=== PATIENT | male | born 1950 | race Caucasian/White ===

== ENCOUNTER 2022-10-31 13:59 | Outpatient (CLI) | payer MEDICARE, OTHER, SELFPAY ==
[2022-10-31 14:31] LABS: Anion Gap 5 mmol/L (8-16); Blood Urea Nitrogen 11 mg/dL (9-20); Calcium 9.1 mg/dL (8.4-10.2); Carbon Dioxide 32 mmol/L (22-30); Chloride 104 mmol/L (98-107); Estimated Glomerular Filt Rate > 60; Glucose 98 mg/dL (65-110); Potassium 4.3 mmol/L (3.4-5.0); Sodium 141 mmol/L (137-145)
== END 2022-10-31 14:00 | disposition home or self-care (01) ==
LOC: ANHSURGERY 14:07
PROVIDERS: Anesthesiology; PCP Family Medicine; Visit Provider Neurological Surgery
DX: M47.812 Spondylosis without myelopathy or radiculopathy, cervical region (principal); Z79.899 Other long term (current) drug therapy; Z01.818 Encounter for other preprocedural examination
CPT/HCPCS: 36415; 80048; 86850; 86900; 86901

== ENCOUNTER 2022-11-06 00:36 | Day surgery (SDC) | payer MEDICARE, OTHER, SELFPAY ==
[2022-10-31 09:09] VITALS: BMI 34.3
--- NOTE | 2022-10-31 09:33 | PC.NURSE ---
PRE-OP INSTRUCTIONS, PLEASE READ CAREFULLY Report to the Outpatient Waiting Room, entrance under the green pavilion located off [facility], at time _0600_ on date _11/06/22_. Planned Procedure Time: _0730_. PACK A SMALL OVERNIGHT BAG AND LEAVE IN THE CAR Time changes happen often and if your time is changed the preop area will call you the afternoon before. - You and your visitor will be asked to self-screen and do not enter if you have any COVID symptoms. - Only one visitor is requested with a max of two and NO children visitors are allowed at this time. - The patient visitor may be requested to leave or wait in car when not with patient due to distancing restrictions. - A mask is optional within the hospital at this time. Patients may have clear liquids (water, carbonated beverages, clear teas, apple juice) until 3 hours prior to surgery (0430 AM) with a maximum of 20 ounces. - No food from midnight until time of surgery Take the following medications with a SIP of water the morning of surgery: _HYDROCODONE, GABAPENTIN IF NEEDED__ DO NOT STOP ANY OF YOUR OTHER PRESCRIPTION MEDICATIONS PRIOR TO SURGERY ?EXCEPT THE FOLLOWING Medications to discontinue _CALQUENCE, MELOXICAM - PT STATES STOPPING 09/29/[address] CLARK INSTRUCTIONS_ Date to take last dose Please no make-up, nail beninese, hairspray, perfume, deodorant, or body powder the day of surgery. No jewelry (including any body piercings) or valuables the day of surgery, leave them at home. Please take a shower or bath the night before, or the morning of, surgery with an antibacterial soap. Wear comfortable, loose fitting clothing. - Jewelry must be removed prior to entering the operating room. Rings and piercings that are not removed may be cut off. - The hospital will not accept responsibility for valuables. - Please leave all valuables, including medications, at home the day of surgery. If you are going home after surgery, a licensed tank truck driver must drive you home. - NO public transportation without another adult if you receive anesthesia. - We recommend that an adult stay with you for 24 hours following discharge. - We also recommend that you do not drive, make important decision, drink alcoholic beverages, or take any drugs that were not prescribed by your health care provider for at least 24 hours after your discharge time. Follow any additional instructions given to you from your surgeon. If you or anyone in your household have experienced Covid symptoms in the past week, please notify your surgeon or the nurse liaison at the phone number below for possible testing. Telephone instructions given to _PATIENT_and asked if any additional questions and then verbalized understanding. Patient advised to call surgeon office or pre surgery nurse liaison [phone] if any additional questions.
--- NOTE | 2022-11-05 14:42 | WPDANESEPPF ---
Anes - Initial Pre Proc Eval Procedure: Operation Date: 11/06/22 07:30 Proposed Procedures p Anterior Cervical Discectomy Fusion C6-7 - John Gonzalez MD Date/Time: 11/05/22 14:42 Surgeon: John Gonzalez MD Pre Op Diagnosis: Cerv Spondylosis wth Radiculopathy Patient Data Age: 72 Gender: M Height: 1.78 m Weight: 108.63 kg Allergies Allergy/AdvReac Type Severity Reaction Status Date / Time No Known Allergies Allergy Verified 11/06/22 06:45 Home Medications Medication Instructions Recorded Confirmed Type acalabrutinib maleate 100 mg 100 mg PO BID 10/31/22 10/31/22 History tablet (Calquence (acalabrutinib maleate)) atorvastatin 20 mg tablet 20 mg DAILY 10/31/22 11/06/22 History furosemide 20 mg tablet 20 mg DAILY PRN EDEMA-LOWER LEGS 10/31/22 11/06/22 History gabapentin 600 mg tablet 600 mg TID PRN NERVE PAIN 10/31/22 11/06/22 History hydrocodone 10 mg-acetaminophen 1 tablet TID PRN Pain 10/31/22 11/06/22 History 325 mg tablet meloxicam 15 mg tablet 15 mg DAILY 10/31/22 10/31/22 History oxybutynin chloride 5 mg tablet 5 mg HS PRN FREQUENT URINATION 10/31/22 11/06/22 History potassium chloride 10 mEq 10 meq PO DAILY PRN TAKES WITH 10/31/22 11/06/22 History tablet,extended release LASIX alprazolam 1 mg tablet 1 mg PO TID PRN Anxiety 11/06/22 11/06/22 History Patient hx anesthesia problems: none Family hx anesthesia problems: none Results Review: All pre-operative results and documents have been reviewed as part of the pre-operative evaluation. [facility] Past Medical History Medical History (Updated 11/05/22 @ 14:39 by Nagi Davis MD) Arthritis CLL (chronic lymphocytic leukemia) CVA (cerebral vascular accident) Hyperlipidemia Hypertension Social History Social History Smoking packs per day: 3 Smoking cigarettes per day: 60.0 Years smoked: 40 Smoking pack-years: 120.00 Smoking status: Former smoker Tobacco type: cigarettes Second hand tobacco smoke exposure: No Smoking end date: 09/16/07 Alcohol intake: former Alcohol use details: QUIT 2020 Substance use: never Substance use type: does not use Living arrangements: with family Spiritual care concerns: No Anes - Eval Final PreProcedure Day of Procedure 11/05/22 14:42 Patient weight: obese Heart: regular rate and rhythm Lungs: clear to auscultation Airway: Mallampati scale class III Neurological: alert and oriented Last oral intake: >/= 8 hours ASA classification: III Emergent: no Anesthetic plan: proceed Anesthesia type and monitoring: general ETT and standard monitoring Results Review: All pre-operative results and documents have been reviewed as part of the pre-operative evaluation. Informed Consent: The patient's anesthetic plan and its attendant risks and benefits were discussed with the patient/family/POA. Questions were solicited and answers provided to the satisfaction of the patient/family/POA.
[2022-11-06] VITALS (11 sets, daily range): BP systolic 130–156; BP diastolic 51–81; PULSE 45–79; RESP 11–20; TEMP 36.7–37.4; O2SAT 96–100
--- NOTE | ~2022-11-06 | XR_ITS ---
XR fluoroscopy no charge Anterior cervical disc fusion TECHNIQUE: Fluoroscopy used during anterior cervical disc fusion at C6-7. performed by Dr. Lashawn Gonzalez MD on 11/06/2022. 9 seconds with 1 images captured. FINDINGS: Correlate with procedure note. IMPRESSION: Fluoroscopy used during please refer to procedural report. anterior cervical disc fusion at C6-7. Reviewed, dictated and finalized at location L. TICE REPRESENTATIVE
[2022-11-06] MEDS: LACTATED RINGERS 1,000 ML 30 ML IV CONT ×2 (07:00→10:21)
--- NOTE | 2022-11-06 07:50 | PM.IMHP ---
H&P: HPI History of Present Illness Date/Time: 11/06/22 07:50 Chief Complaint: Neck and arm pain Narrative: John is a 72-year-old gentleman with neck and arm pain related to pathology at C6-7 the compresses the nerve who presents now for anterior cervical diskectomy and fusion at that level. He has occasional dermatomal numbness but no muscle group weakness. He does not have bowel or bladder difficulty. He has not changed appreciably since we last saw him. Review of Systems Review of Systems: Patient denies shortness of breath, cough, fever, chills, nausea, vomiting, weight loss, weight gain, chest pain, dysuria. He has neck and arm discomfort and stiffness as above. His review of systems is otherwise negative on 12 systems except as noted elsewhere. [facility] Past Medical History Medical History Arthritis CLL (chronic lymphocytic leukemia) CVA (cerebral vascular accident) Hyperlipidemia Hypertension Social History Social History Smoking packs per day: 3 Smoking cigarettes per day: 60.0 Years smoked: 40 Smoking pack-years: 120.00 Smoking status: Former smoker Tobacco type: cigarettes Second hand tobacco smoke exposure: No Smoking end date: 09/16/07 Alcohol intake: former Alcohol use details: QUIT 2020 Substance use: never Substance use type: does not use Living arrangements: with family Spiritual care concerns: No Meds Home Medications and Allergies Home Medications Medication Instructions Recorded Confirmed Type acalabrutinib maleate 100 mg 100 mg PO BID 10/31/22 10/31/22 History tablet (Calquence (acalabrutinib maleate)) atorvastatin 20 mg tablet 20 mg DAILY 10/31/22 11/06/22 History furosemide 20 mg tablet 20 mg DAILY PRN EDEMA-LOWER LEGS 10/31/22 11/06/22 History gabapentin 600 mg tablet 600 mg TID PRN NERVE PAIN 10/31/22 11/06/22 History hydrocodone 10 mg-acetaminophen 1 tablet TID PRN Pain 10/31/22 11/06/22 History 325 mg tablet meloxicam 15 mg tablet 15 mg DAILY 10/31/22 10/31/22 History oxybutynin chloride 5 mg tablet 5 mg HS PRN FREQUENT URINATION 10/31/22 11/06/22 History potassium chloride 10 mEq 10 meq PO DAILY PRN TAKES WITH 10/31/22 11/06/22 History tablet,extended release LASIX alprazolam 1 mg tablet 1 mg PO TID PRN Anxiety 11/06/22 11/06/22 History Allergies Allergy/AdvReac Type Severity Reaction Status Date / Time No Known Allergies Allergy Verified 11/06/22 06:45 Exam Narrative: Strength is normal in bilateral upper extremities to direct confrontation. Sensation is intact to light touch throughout the upper extremities. The breathing is unlabored, he speaks in complete sentences without difficulty Assessment and Plan Assessment and plan (1) Cervical disc herniation: Code(s): M50.20 - Other cervical disc displacement, unspecified cervical region Status: Acute Assessment and Plan: John is a 72-year-old gentleman with neck and arm pain related to pathology at C6-7 presents for anterior cervical diskectomy and fusion at that level. I described to him again that operation, its risks, potential benefits, the operative and postoperative course in detail and answered all his questions personally. He indicates understanding and elects to proceed with that operation.
--- NOTE | 2022-11-06 07:52 | WPDHPUPDATE1 ---
History and Physical Update Update Date/Time: 11/06/22 07:52 History and Physical has been reviewed, including an updated exam of the patient. There are NO changes in the patient's condition. Risks, benefits, and alternatives have been discussed and questions answered. Patient agrees to proceed with procedure.
[2022-11-06] MEDS: ceFAZolin 2 GM/D5W 50 ML 2 GM/50 ML BAG IVPB (07:58)
[2022-11-06] MEDS: LIDO 1%/EPINEPHRINE 1:100,000 20 ML VIAL 10 ML INFILTRATE (08:38)
--- NOTE | 2022-11-06 09:57 | W.PM.PROC2 ---
Procedure Note - Detailed Date of Procedure 11/06/22 Pre-op Diagnosis Cerv Spondylosis wth Radiculopathy Post-op Diagnosis Same Procedure Performed C6-7 complete diskectomy, bilateral neural foraminotomy, interbody arthrodesis utilizing peek interbody device and titanium plate and screws Surgeon John Gonzalez MD [employer] Anesthesia General Description of Procedure John was brought to the operating room in the supine position, was sedated, intubated and placed under general anesthesia in routine fashion. The area of operation on the right side of the neck was examined, marked for incision, prepped and draped in routine sterile fashion. Incision was marked from the midline over the medial aspect of the sternocleidomastoid muscle and curvilinear transverse fashion just above the sternal notch. This area was injected with 0.5% lidocaine with [id number] epinephrine. Intravenous antibiotics given prior to incision. Incision was made with a 10 blade scalpel down to the platysma muscle. The skin was undermined and the platysma muscle was divided longitudinally with its fibers using Metzenbaum scissors. A plane was then dissected medial to the sternocleidomastoid muscle down to the anterior aspect of the spine using the finger and Metzenbaum scissors. A verifying x-rays obtained to verify the level of operation. The plate at C5-6 was uncovered using Bovie cautery. [place] pins were placed into C6 and C7 and distraction placed over the disc space after the longus colli muscle was dissected free of the anterior aspect of the supine in a subperiosteal plane using Bovie cautery. Shadow Line retractor system was placed under the longus colli muscle on each side. Disc spaces entered using a 15 blade scalpel cutting along the margin of the bone above and below. He curved curette and pituitary rongeur were used remove as much disc material and cartilaginous endplate down to the annulus and ligament posteriorly. A Midas Freeman drill was used to bur down the endplates to bleeding cortical flat surfaces as well as to begin a bony foraminotomy bilaterally. The annulus and ligament were interrupted using nerve hook and a curved curette. 2. Kerrison punch was used to remove annulus, ligament and posterior osteophyte and to complete a bony foraminotomy bilaterally. This was done until a nerve hook could be placed out each foramen to confirm lack of compression. The disc space was incised and a 7 mm interbody device with integral titanium plate was chosen and filled with eye factor and local autograft bone. Was then placed into the interspace until the plate was flush with the anterior aspect of spine. Hand drill was used to create holes into the endplates above and below. 16 mm screws were then placed through these holes into the endplates of the bone above and below. The caspar pins and Shadow Line retractor were removed. A verifying x-ray was performed to confirm good position of the instrumentation. It was difficult to visualize the screws and endplates completely because of the anatomy of the shoulders that could not be pulled down more than they were. The wound was then copiously irrigated with bacitracin irrigation all bleeding stopped with bipolar and Bovie cautery and Gelfoam thrombin powder. The wound was then closed in layered fashion with 3-0 Vicryl interrupted sutures in the platysma muscle and in the dermis. The skin was closed with a running 4-0 Monocryl subcuticular stitch and dressed with Dermabond. The patient was allowed to wake up in the operating room and was taken to the recovery room in stable condition. There were no immediate complications of this operation. All counts were reported correct at the end of the case. Blood loss was 25 cc. The patient was neurologically at his baseline postoperatively. Estimated Blood Loss 25 IV Fluids 1,000 Complications None Condition Stable Disposition PACU [facility]
[2022-11-06] MEDS: fentaNYL CITRATE INJ (*CRX) 100 MCG/2 ML VIAL 25 MCG IV PUSH ×7 (10:41→11:04)
[2022-11-06] MEDS: oxyCODONE HCL (*CRX) 5 MG TAB IR PO (11:55)
== END 2022-11-06 12:53 | disposition home or self-care (01) ==
PROVIDERS: PCP Family Medicine; Visit Provider Neurological Surgery
PROC: 0RB30ZZ Excision of Cervical Vertebral Disc, Open Approach (ICD-10-PCS; CPT 22551; principal; 2022-11-06 07:30)
DX: M47.22 Other spondylosis with radiculopathy, cervical region (principal); M50.20 Other cervical disc displacement, unspecified cervical region; C91.10 Chronic lymphocytic leukemia of B-cell type not having achieved remission; I10 Essential (primary) hypertension; E78.5 Hyperlipidemia, unspecified; Z86.73 Personal history of transient ischemic attack (TIA), and cerebral infarction without residual deficits; Z87.891 Personal history of nicotine dependence; E66.9 Obesity, unspecified; Z68.34 Body mass index [BMI] 34.0-34.9, adult
CPT/HCPCS: 22551; 22853; 20936; 99199; A9270; C1713; J0690; J1100; J2250; J2405; J2704; J2710; J3010; J7120

== ENCOUNTER 2022-12-17 11:51 | Outpatient (CLI) | payer MEDICARE, OTHER, SELFPAY ==
--- NOTE | ~2022-12-17 | XR_ITS ---
EXAMINATION:[id number] DATE: 12/17/2022 12:14 INDICATION: Neck pain TECHNIQUE: AP, lateral, and odontoid views of the cervical spine are provided. COMPARISON: None FINDINGS: Alignment is normal. The odontoid process is partially obscured by. No fracture is identifi ed. There are changes of anterior fusion at C5-C6 and C6-7. The vertebral body heights are maintained . Prevertebral soft tissues are normal. There is multilevel mild facet and uncovertebral joint osteoa rthritis IMPRESSION: 1. Postsurgical changes and mild cervical spondylosis without acute findings. Reviewed, dictated and finalized at location B.
== END 2022-12-17 11:52 | disposition home or self-care (01) ==
PROVIDERS: PCP Family Medicine; Visit Provider Neurological Surgery
DX: M50.20 Other cervical disc displacement, unspecified cervical region (principal); Z98.1 Arthrodesis status; M47.892 Other spondylosis, cervical region
CPT/HCPCS: 72040